=== PATIENT | female | born 1955 | race Two or more races ===

== ENCOUNTER → 2023-08-16 | Outpatient (CLI) | payer MEDICARE, OTHER ==
[~2023-08-16] VITALS: Ht 154.9 cm; Wt 68.0 kg
[2023-08-16] MEDS: ADENOSINE 57 MG in GIVE UN-DILUTED 0 ML IV ONE (10:54)
== END | disposition home or self-care (01) ==
LOC: XY 08:36
PROVIDERS: ATTEND Specialist
DX: R07.9 Chest pain, unspecified (principal); R06.02 Shortness of breath; R00.2 Palpitations
CPT/HCPCS: 78452; 93017; A9500; J0153